=== PATIENT | female | born 1945 | race Caucasian/White ===

== ENCOUNTER 2016-09-06 10:20 | Inpatient (IN) | payer MEDICARE, OTHER ==
[2016-09-06] VITALS (11 sets, daily range): BP systolic 15–163; BP diastolic 77–90; PULSE 51–101; RESP 12–25; O2SAT 95–100
[~2016-09-06] VITALS: Ht 157.5 cm; Wt 86.8 kg
[2016-09-06] MEDS: Lactated Ringer's 1,000 ML IV SCH ×5 (05:00→16:15)
[2016-09-06] MEDS: Tranexamic Acid 100 mg/mL 10 mL Inj IV SCH ×2 (06:00→08:00)
[~2016-09-06 10:20] MED LIST: CeFAZolin Inj 2 GM in IV Premix 1 EACH IV ONE; Vancomycin Inj 1,000 MG in IV Premix 1 EACH IV ONE
[2016-09-06] MEDS ORDERED: Lactated Ringer's 500 ML IV PRN (11:45)
[2016-09-06] MEDS ORDERED: Phenylephrine 10,000 mCg/mL Inj IVPUSH PRN (11:45)
[2016-09-06] MEDS ORDERED: hydrALAZINE 20 mg/mL Inj IVPUSH PRN (11:45)
[2016-09-06] MEDS ORDERED: Atropine 0.4 mg/mL Inj IVPUSH PRN (11:45)
[2016-09-06] MEDS ORDERED: Ondansetron 2 mg/mL 2 mL Inj IVPUSH PRN (11:45)
[2016-09-06] MEDS ORDERED: MetoCLOpramide 5 mg/mL 2 mL Inj IVPUSH PRN (11:45)
[2016-09-06] MEDS ORDERED: EPHEDrine Sulfate 50 mg/mL Inj IVPUSH PRN (11:45)
[2016-09-06] MEDS ORDERED: fentaNYL-PF 50 mCg/mL 2 mL Inj IVPUSH PRN (11:45)
[2016-09-06] MEDS ORDERED: Labetalol 5 mg/mL 4 mL Inj IV PRN (11:45)
[2016-09-06] MEDS ORDERED: HYDROmorphone 1 mg/mL Inj IVPUSH PRN ×2 (11:45→14:35)
--- NOTE | 2016-09-06 11:45 | PCM.HPANE ---
Patient Data Surgeon Admitting Provider: Attending Provider:Alvaro Del Angel DO Primary Care Physician:Deidre Other Provider:Dania Garrison Anesthesia Reason for Visit Right Knee Arthritis Ht/WT & BMI Height (Feet): 5 Height (Inches): 2.00 Weight (Kilograms): 84.010 Body Mass Index 34.00 Allergies Coded Allergies: No Known Allergies (Unverified , 09/01/16) Past Anesthesia History Anesthesia History: Denies:: Abnormal Airway, Anesthesia Reactions, Difficult Intubation, Fam Anesthesia Reaction, Malignant Hyperthermia Diabetes History Hx Diabetes?: No MRSA MRSA: No Medications Hypertension Medication: No Home Meds Incl Beta To: No No Active Prescriptions or Reported Meds History History of ENT Problems?: Yes HEENT History: Positive for:: Cataracts (bilateral) Hearing Problem Denies:: Abnormal Airway Difficult Intubation Dysphagia Glaucoma Sinus Problem TMJ Hx of Heart Problems?: No Cardiovascular History: Denies:: AICD Abdominal Aortic Aneurism Atrial Fibrillation Chest Pain Congestive Heart Failure Coronary Artery Disease Edema Heart Murmur Hypertension Irregular Heartbeat Pacemaker Peripheral Vascular Rheumatic Fever Hx of Respiratory Problem?: No Respiratory History: Denies:: Asthma COPD Emphysema Oxygen Administration Pneumonia Tuberculosis Use of C-PAP Machine Use of Inhalers / NEBS Hx Neurologic Problems?: No Neurological History: Denies:: CVA Dementia Dizziness Headaches Multiple Sclerosis Parkinson's Disease Seizures TIA Hx of GI Problems?: No Gastrointestinal History: Denies:: Cirrhosis Diverticulitis Gall Bladder Disease Gastroesphageal Reflux Gastrointestinal Bleeding Heartburn Hepatitis Hiatal Hernia Liver Disease Rectal Bleeding Hx of Problems?: No Genitourinary History: Positive for:: Kidney Stones (surgery for 2006) Denies:: HX of Hemodialysis Urinary Tract Infection HX of Peritoneal Dialysis: No Female Hx: Denies:: Currently Problems with Breasts? Skin History: Denies:: History Skin Disorders? Pressure Ulcers Hx Musculoskeletal Problems?: Yes Musculoskeletal History: Positive for:: Musculoskeletal Trauma (right knee current admission problem) Osteoarthritis Denies:: Back Injury Fibromyalgia Joint Replacement Myasthenia Gravis Rheumatoid Arthritis Systemic Lupus Hx of Psycho/Social Problems?: No Psycho Social History: Denies:: Anxiety Hx Depression Hx Surgeries?: Yes (hysterectomy, kidney stones) Hx Any Other Health Problems?: Yes Other History: Positive for:: Cancer (uterine) Denies:: Thyroid Disease History Blood Transfusions: Positive for:: Accept Blood Products? Denies:: Blood Transfusions Hx Diabetes: No Hx Alcohol Use: NoHx Substance Use: NoHave You Smoked inLast 12 mo: No Stop/Bang S-Snoring: Do You Snore Loudly: No T-Tired: feel tired, fatigued: No O-Obsered: Observed not breath: No P-Blood Pressure: treated: No B- Body Mass Index > 35 kg/m2: No A- Age over 50: Yes N- Neck Large Circumference: No G- Gender Male: No NORI Total Score: 1 NORI Risk Assessment: Low Risk, <3 Yes Risk Assessment Category Category 1A: Patient has history of documented sleep apnea, and HAS NOT received any narcotic, sedative or anesthesia administration during this stay. Category 1B: Patient has history of documented sleep apnea, and HAS received any narcotic , sedative or anesthesia administration during this stay Category 2: Patient has SUSPECTED Obstructive Sleep Apnea, and HAS received any narcotic , sedative or anesthesia administration during this stay. Category 3: Patient has SUSPECTED Obstructive Sleep Apnea and HAS NOT received narcotic, sedative or anesthesia administration during this stay. Category 4: Outpatient in Procedural Areas with known sleep apnea or who screen positive for High Risk via the STOP/BANG questionnaire. Exam Exam Vital Signs Vital Signs Date Time Temp Pulse Resp B/P Pulse Ox O2 Delivery O2 Flow Rate FiO2 09/06/16 11:10 37.1 60 16 147/83 100 Room Air General Appearance: Alert, Oriented X3, Cooperative, No Acute Distress HEENT/AIRWAY: MP 2, Other (prominent overbite) Lungs: Clear to Auscultation, Normal Air Movement Heart: Exam Unremarkable, Regular Rate/Rhythm, No Murmurs/Rubs/Gallops Meds/Labs/Diagnostics Admission Meds Current Medications Lactated Ringer's 1,000 ml @ 120 mls/hr Q8H20M IV Last administered on t 05:48; Start 09/06/16 at 05:00; Stop 09/06/16 at 13:19 Vancomycin/0.9 % Sod Chloride/ Premix (Vancomycin Inj/ IV Premix) 200 ml @ 133.333 mls/hr PREOP ONCE IV Last administered on 09/06/16t 10:45; Start 09/06 at 06:00; Stop 09/06/16 at 07:29; Status DC Plan Impression Patient chart reviewed, patient interviewed and anesthestic plan with risks, benefits, and alternatives discussed, and informed consent obtained. NPO Status: 09/05 at 1700 ASA Physical Status: ASA2 Mod Systemic Disease Anesthetic Plan: Regional Block (AC block with US), SAB (with sedation, possible GA) Bene/Risks/Altern/Consents: Yes HP Complete Prior to Induction: Yes Alvaro Rollins MD Sep 06, 2016 11:22
[2016-09-06] MEDS ORDERED: 0.9% Sodium Chloride 100 ML ONE ×2 (11:50→11:59)
[2016-09-06 13:43] LABS: APPEARANCE,URINE HAZY (CLEAR,HAZY); COLOR,URINE STRAW (YELLOW); OCCULT BLOOD,URINE NEGATIVE (NEGATIVE); UROBILINOGEN,URINE NORMAL (NORMAL)
[2016-09-06] MEDS ORDERED: Sodium Biphos-Phos 133 mL Enema RECTAL PRN (14:35)
[2016-09-06] MEDS ORDERED: Ketorolac 15 mg/mL Inj IVPUSH PRN (14:35)
[2016-09-06] MEDS ORDERED: Magnesium Hydroxide 10 mL Oral Concentration PO PRN (14:35)
[2016-09-06] MEDS ORDERED: Polyethylene Glycol (PEG) 17 Gm Powder PO PRN (14:35)
[2016-09-06] MEDS ORDERED: diphenhydrAMINE 25 mg Capsule PO PRN (14:35)
[2016-09-06] MEDS ORDERED: Ropivacaine-PF 0.5% 30 mL Inj INFILTRATE ONE (15:05)
--- NOTE | 2016-09-06 15:05 | PCM.ANEP1 ---
Post Anesthesia Phase 1 PACU Phase 1 Assessment Vital Signs Vital Signs Date Time Temp Pulse Resp B/P Pulse Ox O2 Delivery O2 Flow Rate FiO2 09/06/16 11:10 37.1 60 16 147/83 100 Room Air Anesthetic Administered: Regional Block, SAB Level of Alertness: Awake, talking WILSON's with Equal Strength: No (residual SAB) Pain: No Nausea or Vomiting: No Oxygen Delivery: Simple Mask Lungs: Clear to Auscultation, Normal Air Movement Summary VSS Alvaro Rollins MD Sep 06, 2016 15:05
--- NOTE | 2016-09-06 15:05 | PCM.ANEP2 ---
Post Anesthesia Evaluation ASA/CMS Post Anesthesia VS in Patient's Normal Range?: Yes Resp Stable; Airway Patent?: Yes CV Function & Hydration Stable: Yes Mental Status Recovered?: Yes Pain control Satisfactory?: Yes N/V Control Satisfactory?: Yes Alvaro Rollins MD Sep 06, 2016 15:05
--- NOTE | 2016-09-06 16:20 | DRSVH ---
PROCEDURE: X-RAY RIGHT KNEE, ONE OR TWO VIEWS ([id number]) INDICATIONS: post op TECHNIQUE: 2 view(s) of the knee acquired. COMPARISON: None. FINDINGS: Bones: Patient is status post knee joint arthroplasty. Hardware components are in expected position s. Visualized bony structures are intact. Soft tissues: Overlying postoperative changes are noted. There is a bandage dressing over the anteri or soft tissues. IMPRESSION: Acute postoperative changes of total right knee arthroplasty. Dictated by: Kirk Hernandez M.D. on 09/06/2016 at 16:16 Approved by: Kirk Hernandez M.D. on 09/06/2016 at 16:19
[2016-09-06] MEDS ORDERED: Ondansetron 2 mg/mL 2 mL Inj ONE (16:41)
[2016-09-06] MEDS ORDERED: Bupivacaine-MPF 0.25%/EPI 30 mL Inj ONE (16:41)
[2016-09-06] MEDS ORDERED: Propofol 10,000 mCg/mL 20 mL Inj ONE (16:41)
[2016-09-06] MEDS ORDERED: Dexamethasone 4 mg/mL Inj ONE (16:41)
[2016-09-06] MEDS ORDERED: fentaNYL-PF 50 mCg/mL 2 mL Inj ONE (16:41)
[2016-09-06] MEDS ORDERED: Bupiv-Spinal 0.75%/Dex 8.25% 2 mL Inj ONE (16:41)
[2016-09-06] MEDS ORDERED: Bupivacaine-MPF 0.25% 30 mL Inj ONE (16:41)
[2016-09-06] MEDS: Sodium Chloride LOK Flush 10 mL Syringe IV SCH (17:00)
[2016-09-06] MEDS: 0.9% Sodium Chloride 1,000 ML IV SCH (17:02)
[2016-09-06] MEDS: Senna-Docusate 8.6-50 mg Tablet PO SCH (20:30)
[2016-09-06] MEDS: CeFAZolin Inj 2 GM in Dextrose 5% 50 ML IV SCH (23:02)
[2016-09-07 00:11] VITALS: BP 134/75; PULSE 86; RESP 18; O2SAT 94
[2016-09-07] MEDS: Sodium Chloride LOK Flush 10 mL Syringe IV SCH ×3 (00:30→16:39)
--- NOTE | 2016-09-07 00:46 | OP ---
[address] [address] OPERATIVE REPORT PATIENT: YARITZA ENGLAND : 1945 MR#: [id number] ADMIT: 09/06/2016 JOB ID: [id number] DATE OF SURGERY: 09/06/2016 PREOPERATIVE DIAGNOSIS(ES): Right knee degenerative joint disease. POSTOPERATIVE DIAGNOSIS(ES): Right knee degenerative joint disease. PROCEDURE: Right total knee arthroplasty. SURGEON: Alvaro Del Angel DO WIRELESS ENGINEER: Teagan Mckeon PA-C INDICATIONS: The patient is a 71-year-old female with right knee severe degenerative arthritis, and severe valgus angulation with failed conservative measures and wished to proceed with a right total knee arthroplasty. We discussed the risks, benefits, and possible complications of surgery including, but not limited to, injury to nerves and vessels, infection, bleeding, incomplete relief of symptoms, stiffness, deep venous thrombosis. The patient had good understanding. All questions were answered. She wished to proceed. PROCEDURE IN DETAIL: The patient is brought to the operating room. She was given preoperative antibiotic, 1 g TXA prior to the incision, and a spinal anesthetic. The right lower extremity was sterilely prepped and draped. A tourniquet was used for hemostasis. An incision was made over the anteromedial knee and dissection was carefully carried through subcutaneous tissue. Electrocautery was used for hemostasis. A split was then made in the quad tendon, leaving a cuff of tissue for repair. This was taken along the medial retinaculum and down onto the proximal medial tibial face. A minimal amount of medial release was performed only in order to gain exposure. A portion of the fat pad as well as a portion of the anterior horn, medial and lateral menisci were then removed. The patella was then everted. The knee was flexed. Hohmann retractors were placed on the other side of the knee to protect the collaterals, and the femur was instrumented beginning with the opening reamer. Then, an intramedullary jefferson was placed into the femur and had a 5 degree distal valgus cut angle. I initially pinned the block for 9 mm of resection. However, this was inadequate, and I removed an additional two for 11 mm of total distal femoral resection. Next, the tibia was addressed and an extramedullary tibial cutting guide was placed parallel to the long axis of the tibia. This was pinned into position and a tibial cut was performed. I made an initial minimal tibial cut. However, two additional mm were removed, as I felt that it was somewhat inadequate after removal with a spacer block check. Next, the medial and lateral menisci were removed and the femur was prepared. I elected to do 5 degrees external rotation on the femur in order to make the guide parallel with the tibia. The femoral box cut was then performed and the cruciates were removed. The knee was then trialed with a 5 femur and 4 tibia, which allowed for excellent coverage of the knee with no overhang, although I felt the size 5 standard was a bit large, and therefore, I elected to use a 5 narrow femur. We trialed with a 5 and then 6 poly, which allowed for full flexion, full extension, equal gaps medially and laterally. The patella was then resurfaced with a free hand type technique, cut from initial thickness of 20 to a thickness of 13. A 35 mm patellar button was chosen, drilled for trial and had excellent tracking. The femur was drilled. The tibia was drilled and punched. The bony surfaces were then washed and dried, and the components were then cemented into position beginning with the DePuy Attune fixed bearing 4 tibia, followed by the DePuy Attune posterior stabilized 5 narrow femur and a 6 mm poly. A 35 mm patellar button was also cemented into position. All excess cement was removed. The knee was held in some flexion while the cement was allowed to polymerize. After the cement had been allowed to polymerize, the tourniquet was let down. Electrocautery was used for hemostasis. A second g of TXA was infused. The knee was then closed with interrupted #1 Surgilon and 0 Vicryl for the capsular layers, followed by 2-0 Vicryl in the subcu and 2-0 running V-Loc, followed by a 3-0 running V-Loc subcuticular. Sterile dressings were applied. The patient tolerated the procedure well. Blood loss was 50 cc. POSTOPERATIVE PROTOCOL: Have the patient weightbear to tolerance, use a walker for ambulation, and will use aspirin for DVT prophylaxis and [place] for postop pain.
[2016-09-07] MEDS: 0.9% Sodium Chloride 1,000 ML IV SCH ×3 (03:41→20:33)
[2016-09-07] MEDS: Acetaminophen IV 1,000 MG in IV Premix 1 EACH IV PRN ×2 (03:42→13:03)
[2016-09-07 04:26] VITALS: BP 120/72; PULSE 83; RESP 18; O2SAT 95
[2016-09-07 06:27] LABS: BASOPHILS % (AUTO) 0.1 % (0-3); EOSINOPHILS % (AUTO) 0 % (0-5); MONOCYTES % (AUTO) 9.3 % (4-12); Mean Corpuscular Hemoglobin 29.5 pg (27.0-35.0); NEUTROPHILS % (AUTO) 77.3 % (40-74); Platelet Count 181 bil/L (150-400)
[2016-09-07] MEDS: Senna-Docusate 8.6-50 mg Tablet PO SCH ×3 (08:20→20:32)
[2016-09-07] MEDS: CeFAZolin Inj 2 GM in Dextrose 5% 50 ML IV SCH (08:27)
[2016-09-07 09:49] VITALS: BP 121/68; PULSE 66; RESP 17; O2SAT 98
--- NOTE | 2016-09-07 14:30 | PCM.PNORTH ---
Subjective Date of Service: Sep 07, 2016 Visit Information: Reason for Visit Right Knee Arthritis Surgery/Surgery Date Post-Op Day # Date of Admission: Sep 06, 2016 at 16:40 Hospital Day # Subjective Status post day #1 right total knee arthroplasty. Patient states she is doing very well, she anticipates that she should feel well enough to go home tomorrow as she is happy with her results and doing well with physical therapy. Objective Exam Objective Patient is alert and oriented 3. Answering questions appropriately. Sitting up in bed and not in any acute distress today. Dressing is clean dry and intact. Patient able to wiggle toes. Calf is soft and nontender, pulses intact, sensation is full. Vital Signs and I/O Vital Sign - Last Date Time Temp Pulse Resp B/P Pulse Ox O2 Delivery O2 Flow Rate FiO2 09/07/16 09:49 36.5 66 17 121/68 98 Room Air Intake and Output 09/06/16 09/06/16 09/07/16 Cumulative From/Thru 15:00 23:00 07:00 09/01/16 12:54 - 09/07/16 06:16 Intake Total 1250 ml 150 ml 1310 ml 2710 ml Output Total 350 ml 300 ml 650 ml Balance 900 ml -150 ml 1310 ml 2060 ml IV Total 1250 ml 150 ml 1310 ml 2710 ml Output Urine Total 300 ml 300 ml 600 ml Estimated Blood Loss 50 ml 50 ml Lab & Micro Results Laboratory Tests Test 09/07/16 06:00 White Blood Count 7.4th/mm3 (3.8-10.1) Red Blood Count 4.10mil/mm3 (3.90-5.20) Hemoglobin 12.1g/dL (12.0-15.6) Hematocrit 36.9% (35.0-46.0) Mean Corpuscular Volume 90.0fL (81-100) Mean Corpuscular Hemoglobin 29.5pg (27.0-35.0) Mean Corpuscular Hemoglobin Concent 32.8% (32.0-37.0) Red Cell Distribution Width 13.2% (12.3-15.4) Platelet Count 181bil/L (150-400) Neutrophils (%) (Auto) 77.3% (40-74) Lymphocytes (%) (Auto) 13.0% (14-46) Monocytes (%) (Auto) 9.3% (4-12) Eosinophils (%) (Auto) 0% (0-5) Basophils (%) (Auto) 0.1% (0-3) Sodium Level 140mEq/L (134-144) Potassium Level 4.4mEq/L (3.5-5.2) Chloride Level 104mEq/L (97-108) Carbon Dioxide Level 24mmol/L (18-29) Blood Urea Nitrogen 13mg/dL (8-27) Creatinine 0.68mg/dL (0.57-1.00) Estimat Glomerular Filtration Rate 123mL/min (>59) Glucose Level 103mg/dL (60-99) Calcium Level 8.3mg/dL (8.5-10.1) Result Diagram: 09/07/16 0600 09/07/16 0600 Assessment & Plan Impression Status post day #1 right total knee arthroplasty. Patient doing very well, progressing well with physical therapy. Anticipate discharge to home as soon as tomorrow. Problems: Plan Patient will continue working with physical therapy today and tomorrow and during hospital stay for right total knee, weightbearing as tolerated with front wheeled walker. Patient will utilize aspirin 325 mg tablets 1 by mouth twice a day for a total of 6 weeks for DVT prophylaxis. Patient will take [place] 5/325 mg tablets every 4-6 hours as needed for pain and will be discharged home with this as well. Dressing change by ALBERTO tomorrow. Anticipated that patient will be able to be discharged as soon as tomorrow to home as she is doing very well. Atif Yarbrough PA-C Sep 07, 2016 14:30
[2016-09-07 20:45] VITALS: BP 144/74; PULSE 63; RESP 16; O2SAT 95
[2016-09-08] MEDS: hydrOXYzine Pamoate 25 mg Capsule PO PRN ×2 (01:31→08:09)
[2016-09-08] MEDS: HYDROcodone-APAP 7.5-325 mg Tablet PO PRN ×2 (01:32→08:09)
[2016-09-08] MEDS: Sodium Chloride LOK Flush 10 mL Syringe IV SCH ×2 (04:17→08:13)
[2016-09-08 05:45] VITALS: BP 150/87; PULSE 65; RESP 16; O2SAT 96
[2016-09-08] MEDS: 0.9% Sodium Chloride 1,000 ML IV SCH (05:48)
[2016-09-08 06:54] LABS: BASOPHILS % (AUTO) 0.1 % (0-3); EOSINOPHILS % (AUTO) 0.3 % (0-5); MONOCYTES % (AUTO) 10.2 % (4-12); Mean Corpuscular Volume 90.1 fL (81-100); NEUTROPHILS % (AUTO) 75.1 % (40-74); Platelet Count 161 bil/L (150-400)
[2016-09-08] MEDS: Senna-Docusate 8.6-50 mg Tablet PO SCH (08:07)
--- NOTE | 2016-09-08 08:45 | PCM.PNORTH ---
Subjective Date of Service: Sep 08, 2016 Visit Information: Reason for Visit Right Knee Arthritis Surgery/Surgery Date right total knee arthroplasty 09/06/2016 Post-Op Day # 2 Date of Admission: Sep 06, 2016 at 16:40 Hospital Day # Subjective Patient feels that she is doing quite well. She is walking well and is done stairs today with physical therapy. She states at this moment she is not having any pain. Last night she uses [place] for good pain relief. She feels that she is ready to home today. She has outpatient physical therapy scheduled to start next week. Postop General: No Complaints, No Shortness of Breath, No Chest Pain, Good Appetite Pain Management: PO Objective Exam Objective Patient is seen sitting up in bed Vital Signs and I/O Vital Sign - Last Date Time Temp Pulse Resp B/P Pulse Ox O2 Delivery O2 Flow Rate FiO2 09/08/16 05:45 36.8 65 16 150/87 96 Room Air Intake and Output 09/07/16 09/07/16 09/08/16 Cumulative From/Thru 15:00 23:00 07:00 09/01/16 12:54 - 09/07/16 17:15 Intake Total 913 ml 610 ml 4233 ml Output Total 1800 ml 650 ml 3100 ml Balance -887 ml -40 ml 1133 ml Intake Oral 913 ml 493 ml 1406 ml IV Total 117 ml 2827 ml Output Urine Total 1800 ml 650 ml 3050 ml Estimated Blood Loss 50 ml # Bowel Movements 0 0 Lab & Micro Results Laboratory Tests Test 09/08/16 06:38 White Blood Count 7.7th/mm3 (3.8-10.1) Red Blood Count 4.04mil/mm3 (3.90-5.20) Hemoglobin 11.7g/dL (12.0-15.6) Hematocrit 36.4% (35.0-46.0) Mean Corpuscular Volume 90.1fL (81-100) Mean Corpuscular Hemoglobin 29.0pg (27.0-35.0) Mean Corpuscular Hemoglobin Concent 32.1% (32.0-37.0) Red Cell Distribution Width 13.8% (12.3-15.4) Platelet Count 161bil/L (150-400) Neutrophils (%) (Auto) 75.1% (40-74) Lymphocytes (%) (Auto) 13.9% (14-46) Monocytes (%) (Auto) 10.2% (4-12) Eosinophils (%) (Auto) 0.3% (0-5) Basophils (%) (Auto) 0.1% (0-3) Sodium Level 138mEq/L (134-144) Potassium Level 4.1mEq/L (3.5-5.2) Chloride Level 104mEq/L (97-108) Carbon Dioxide Level 24mmol/L (18-29) Blood Urea Nitrogen 13mg/dL (8-27) Creatinine 0.61mg/dL (0.57-1.00) Estimat Glomerular Filtration Rate 139mL/min (>59) Glucose Level 112mg/dL (60-99) Calcium Level 8.6mg/dL (8.5-10.1) Result Diagram: 09/08/1663709/08/16 06 General Appearance: Alert, Oriented X3, Cooperative, No Acute Distress Extremities: Distal Pulses Palpable, No Compartment Syndrom Noted, Thigh & Calf Soft/Nontender, Tenderness/Swelling Noted (at the right knee as expected) Postop Sensory Motor: Distal Motor Intact, NVI Distally SURGICAL WOUND : Wound Location/Description Right knee: Surgical dressing is removed. There is minimal serous drainage on the bandage. There is no erythema or signs of infection. Steri-Strips are intact. Wound is cleansed with hydrogen peroxide and dressed with [place], ABD and fishnet stocking. Activity: Activity per PT, Ambulate with PT Catheters: None Assessment & Plan Impression Status post right total knee arthroplasty POD #2 Problems: Plan Weightbearing: Weightbearing as tolerated with walker DVT prophylaxis: aspirin 325 mg twice a day 6 weeks Physical therapy for transfers, progressive ambulation, therapeutic exercise Wound care: PA changed dressing today to [place] and ABD Patient brought her thigh-high compression stocking. Nursing - please apply compression stockings bilateral prior to discharge Discharge plan: Discharge home today. Start outpatient physical therapy next week as scheduled. Discharge instructions are reviewed. Patient will be discharged with [place] and tramadol Follow-up plan: In 2 weeks at [facility] with PA for wound check and at [address] Del Angel with x-rays Pain Management: Tramadol, Toradol, [place] 7.5/325, Vistaril VTE Prophylaxis: SCDs, Other (aspirin 325 mg twice a day) Resuscitation Status: CPR: Attempt Resuscitation Teagan Mckeon PA-C Sep 08, 2016 08:45
--- NOTE | 2016-09-08 11:13 | PCM.DIORTH ---
Ortho Discharge Instruction Dates of Hospitalization Date of Hospital Admission Sep 06, 2016 at 16:40 Providers Admitting Physician: Alvaro Del Angel DO Primary Care Physician: Deidre Attending Physician: Alvaro Del Angel DO Diet Discharge Diet: No restrictions Activity Discharge Activity-General: Balance rest and activity Right Lower Extremity: Weight Bearing as tolerated Discharge Assist Device: Front Wheeled Walker Dressing and Incisional Care Discharge Dressing Care: Keep dressing clean, dry & intact Discharge Hygiene: May shower (see instructions below) Additional Instructions Discharge Instructions Weightbearing: Weightbearing as tolerated with walker DVT prophylaxis: aspirin 325 mg twice a day 6 weeks Activity: Get up every hour you are awake to walk or do any exercises. Push yourself with bending and straightening the knee. Do not place a pillow under the knee when resting as this will cause the back of the knee to tighten. Pillow may be placed under the calf or foot. Ice the knee 6-10 times a day Elevate the right leg above the level of the heart every afternoon for 1-2 hours to help decrease swelling Wound care: Change dressing in 1-2 days. Handle the silver dressing by the corners and reapply ABD pad The patient may shower if the wound has no drainage present x 24 hours. Wound may be uncovered to shower. Let soap and water run over the wound, pat dry and apply a new dressing. Wear thigh-high compression stocking on right leg for 4 weeks after surgery. Start outpatient physical therapy next week as scheduled. Prescriptions: [place], tramadol for pain. Vistaril for spasms. Use MiraLax once a day if needed to prevent constipation Follow Up Plan Follow Up Plan Follow-up plan: In 2 weeks at [facility] with ALBERTO for wound check and at [address] Del Angel with x-rays Call your provider for: Fever, Chills, Shortness of breath, Vomitting, Drainage at incision, Wound redness Teagan Mckeon PA-C Sep 08, 2016 11:13
[2016-09-08] MEDS ORDERED: Aspirin-Expunged Drug, Do Not Renew! PO (11:16)
[2016-09-08] MEDS ORDERED: HYDR-3797 PO (11:16)
[2016-09-08] MEDS ORDERED: Hydrocodone/Acetaminophen PO (11:16)
[2016-09-08] MEDS ORDERED: TRAM-14 PO (11:16)
--- NOTE | 2016-09-08 11:18 | PCM.DC.ORT ---
Discharge Summary Date of Service: Sep 08, 2016 Date of Hospital Admission: Sep 06, 2016 at 16:40 Date of Surgery: Sep 08, 2016 Date of Discharge: Sep 08, 2016 Reason for Hospitalization: Right knee arthritis Procedures Performed: Right total knee arthroplasty Hospital Course: The patient was admitted to the hospital on 09/06/2016 and underwent the above procedure. Antibiotic prophylaxis consisting of Ancef and vancomycin. The surgeon was Dr. Del Angel. A H[place] was placed perioperatively. Patient tolerated the procedure well and was transferred to recovery room in stable condition. H[place] was discontinued on postop day 1. Patient had physical therapy to work on ambulation and transfers. Weightbearing as tolerated with walker. Pain was managed with Dilaudid, [place], Vistaril, Toradol, and tramadol. DVT prophylaxis : Aspirin 325 mg twice a day.Patient progressed well with physical therapy and on POD-2 was discharged home. Outpatient physical therapy is scheduled to start next week Follow-up: at [facility] 2 weeks postop for wound check and at [address] Del Angel with x-ray Diagnosis at Time of Discharge Status post right total knee arthroplasty Problems: Disposition: Discharged home in stable condition Discharge Instructions: Weightbearing: Weightbearing as tolerated with walker DVT prophylaxis: aspirin 325 mg twice a day 6 weeks Activity: Get up every hour you are awake to walk or do any exercises. Push yourself with bending and straightening the knee. Do not place a pillow under the knee when resting as this will cause the back of the knee to tighten. Pillow may be placed under the calf or foot. Elevate the right leg above the level of the heart every afternoon for 1-2 hours to help decrease swelling Wound care: Change dressing in 1-2 days. Handle the silver dressing by the corners and reapply ABD pad The patient may shower if the wound has no drainage present x 24 hours. Wound may be uncovered to shower. Let soap and water run over the wound, pat dry and apply a new dressing. Wear thigh-high compression stocking on right leg for 4 weeks after surgery. Start outpatient physical therapy next week as scheduled. Prescriptions: [place], tramadol for pain. Vistaril for spasms. Use MiraLax once a day if needed to prevent constipation ([Aspirin-Expunged Drug, Do Not Renew!]) 325 MG TABLET 325 MG PO BID ([Hydrocodone/Acetaminophen]) 1 TABLET TABLET 1 TABLET PO Q4H PRN PRN For Moderate Pain Hydroxyzine Pamoate (HydrOXYzine Pamoate) 25 Mg Capsule 25 MG PO Q4H PRN PRN For Spasm and/or Restlessness Tramadol (Ultram) 50 Mg Tablet 50 MG PO Q6H PRN PRN For Mild Pain Teagan Mckeon PA-C Sep 08, 2016 11:18
== END 2016-09-08 12:57 | disposition home or self-care (01) | DRG 470 ==
LOC: SAS 10:20 → OSC 16:40 → SOU 09-07 13:55 → OSC 09-07 14:24
PROVIDERS: ADMIT Orthopaedic Surgery; ATTEND Orthopaedic Surgery
PROC: 0SRC0J9 Replacement of Right Knee Joint with Synthetic Substitute, Cemented, Open Approach (ICD-10-PCS; principal; 2016-09-06 12:30)
DX: M17.11 Unilateral primary osteoarthritis, right knee (principal)